=== PATIENT | female | born 1995 | race Caucasian/White ===

== ENCOUNTER 2016-09-30 20:42 | Emergency (ER) | payer MEDICAID, OTHER ==
[~2016-09-30] VITALS: Ht 167.6 cm; Wt 112.9 kg
[~2016-09-30 20:42] MED LIST: ATIVAN0.5 MG ORAL; NAPROSYN500 M1 ORAL; NKM
--- NOTE | 2016-09-30 21:06 | Emergency Room Report ---
History of Present Illness General Chief Complaint: Vaginal Source: Patient Present Illness HPI Patient is a 21-year-old female a approximately one month . The patient presented for increased lower bowel cramping and vaginal bleeding. Patient any fever. She denied having any dysuria. Patient denied any vomiting or diarrhea. As she was recently told she was . Patient had previously had some exams done without any findings of intrauterine . The patient reports complaint of having increased pain. She reported having pain midline her abdomen. She denied any lateralized pain. She denied worsening pain with ambulation.The patient had LMP approximately August 09, 2016 , she denied severe pain. Allergies: Coded Allergies: No Known Allergies (Unverified , 11/04/13) Patient History Past Medical History: see triage record Last Menstrual Period: AUG THIS YEAR Now: Yes - WAS TOLD POSITIVE FOR : 5 Reviewed Nursing Documentation: PMH: Agreed, PSxH: Agreed Nursing Documentation-PM Past Medical History: No Stated History Review of Systems All Other Systems: negative except mentioned in HPI Physical Exam Vital Signs Date Time Temp Pulse Resp B/P Pulse Ox O2 Delivery O2 Flow Rate FiO2 09/30/16 20:49 97.7 96 18 165/92 100 Room Air Sp02 EP Interpretation: reviewed, normal General Appearance: normal inspection, well appearing, no apparent distress, alert, GCS 15, obese Head: atraumatic ENT: normal ENT inspection, hearing grossly normal, normal voice Neck: normal inspection, full range of motion, supple, no bony tend Respiratory: normal inspection, lungs clear, normal breath sounds, no respiratory distress, no retraction, no wheezing Cardiovascular #1: regular rate, rhythm, no edema Gastrointestinal: normal inspection, normal bowel sounds, non tender, soft, no guarding, no hernia Genitourinary: no CVA tenderness Musculoskeletal: normal inspection, back normal, normal range of motion Neurologic: normal inspection, alert, oriented x3, responsive, thread separator III-XII nml as tested, speech normal Psychiatric: normal inspection, judgement/insight normal, mood/affect normal Skin: normal inspection, normal color, no rash Medical Decision Making Diagnostic Impression: Primary Impression: Threatened in first trimester ER Course Patient presented for abdominal pain. Differential diagnoses included ischemic bowel, appendicitis, perforated viscus, abdominal aortic aneurysm, inferior myocardial infarction, viral gastroenteritis Because of complexity of patient's case laboratory testing and imaging studies were ordered. Ultrasound imaging was ordered due to patient's and abdominal pain. The patient's quantitative beta-hCG was noted to be below discriminatory zone. Patient was noted to have ultrasound without adnexal abnormalities. The patient was advised followup with her HOME CARE PHYSICAL THERAPIST. The patient is advised to return if she began having increased pain or bleeding or lightheadedness. Labs Test 09/30/16 20:17 09/30/16 21:25 Urine Color Yellow Urine Appearance Clear Urine pH 7 (4.5-8.0) Urine Specific [place] 1.010 (1.005-1.035) Urine Protein 2+ (NEGATIVE) Urine Glucose (UA) Negative (NEGATIVE) Urine Ketones Negative (NEGATIVE) Urine Occult Blood 5+ (NEGATIVE) Urine Nitrite Negative (NEGATIVE) Urine Bilirubin Negative (NEGATIVE) Urine Urobilinogen 1 MG/DL (0.0-1.0) Urine Leukocyte Esterase 1+ (NEGATIVE) Urine RBC 10-15 /HPF (0 - 2) Urine WBC 5-10 /HPF (0 - 2) Urine Squamous Epithelial Cells Few /LPF (NONE/OCC) Urine Bacteria Many /HPF (NONE) White Blood Count 9.8 K/UL (4.8-10.8) Red Blood Count 4.92 M/UL (4.20-5.40) Hemoglobin 14.1 G/DL (12.0-16.0) Hematocrit 44.4 % (37.0-47.0) Mean Corpuscular Volume 90 FL (80-99) Mean Corpuscular Hemoglobin 28.7 PG (27.0-31.0) Mean Corpuscular Hemoglobin Concent 31.8 G/DL (32.0-36.0) Red Cell Distribution Width 13.0 % (11.6-14.8) Platelet Count 224 K/UL (150-450) Mean Platelet Volume 7.9 FL (6.5-10.1) Neutrophils (%) (Auto) 57.8 % (45.0-75.0) Lymphocytes (%) (Auto) 31.5 % (20.0-45.0) Monocytes (%) (Auto) 8.3 % (1.0-10.0) Eosinophils (%) (Auto) 1.4 % (0.0-3.0) Basophils (%) (Auto) 1.0 % (0.0-2.0) Prothrombin Time 9.8 SEC (9.30-11.50) Prothromb Time International Ratio 1.0 (0.9-1.1) Activated Partial Thromboplast Time 24 SEC (23-33) Sodium Level 139 mEQ/L (135-145) Potassium Level 3.9 mEQ/L (3.4-4.9) Chloride Level 97 mEQ/L (98-107) Carbon Dioxide Level 28 mEQ/L (20-30) Anion Gap 14 (5-15) Blood Urea Nitrogen 12 mg/dL (7-23) Creatinine 0.8 mg/dL (0.5-0.9) Estimat Glomerular Filtration Rate > 60 mL/min (>60) Glucose Level 111 mg/dL (74-106) Calcium Level 9.5 mg/dL (8.6-10.2) Total Bilirubin 0.2 mg/dL (0.0-1.2) Aspartate Amino Transf (AST/SGOT) 26 U/L (5-40) Alanine Aminotransferase (ALT/SGPT) 42 U/L (3-33) Alkaline Phosphatase 74 U/L (35-104) Total Protein 8.4 g/dL (6.6-8.7) Albumin 4.7 g/dL (3.5-5.2) Globulin 3.7 g/dL Albumin/Globulin Ratio 1.2 (1.0-2.7) Lipase 31 U/L (< 60) Human Chorionic Gonadotropin, Quant 1264 mIU/mL Last Vital Signs Date Time Temp Pulse Resp B/P Pulse Ox O2 Delivery O2 Flow Rate FiO2 09/30/16 20:49 97.7 96 18 165/92 100 Room Air Status: improved Disposition: HOME, SELF-CARE Condition: Stable Scripts Cephalexin* (KEFLEX*) 500 Mg Capsule 500 MG ORAL Q6H, #28 CAP 0 Refills Prov: Jaya Villalba 09/30/16 Acetaminophen (Tylenol) 325 Mg Tablet 650 MG ORAL Q6H Y for Prn Pain/Headache/Temp > 101, #30 TAB 0 Refills Prov: Jaya Villalba 09/30/16 Jaya Villalba Sep 30, 2016 21:06
[2016-09-30] MEDS ORDERED: TYLENOL325 MG ORAL (21:07)
[2016-09-30 21:25] LABS: APPEARANCE,URINE CLEAR; KETONES,URINE NEGATIVE (NEGATIVE); LEUKOCYTE ESTERASE ,URINE 1+ (NEGATIVE); NITRITE,URINE NEGATIVE (NEGATIVE); PH,URINE 7 (4.5-8.0); PROTEIN,URINE 2+ (NEGATIVE); UROBILINOGEN,URINE 1 MG/DL (0.0-1.0)
[2016-09-30 21:39] LABS: BACTERIA,URINE MANY /HPF; SQUAMOUS EPITHELIAL CELL,UR FEW /LPF (NONE/OCC)
[2016-09-30 21:46] LABS: EOSINOPHILS % (AUTO) 1.4 % (0.0-3.0); LYMPHOCYTES % (AUTO) 31.5 % (20.0-45.0); MEAN CORPUSCULAR HEMOGLOBIN 28.7 PG (27.0-31.0); MEAN CORPUSCULAR HGB CONC 31.8 G/DL (32.0-36.0); MEAN CORPUSCULAR VOLUME 90 FL (80-99); MEAN PLATELET VOLUME 7.9 FL (6.5-10.1); MONOCYTES % (AUTO) 8.3 % (1.0-10.0); NEUTROPHILS % (AUTO) 57.8 % (45.0-75.0); PLATELET COUNT 224 K/UL (150-450); RED BLOOD COUNT 4.92 M/UL (4.20-5.40); WHITE BLOOD COUNT 9.8 K/UL (4.8-10.8)
[2016-09-30 21:49] LABS: PROTHROMBIN TIME 9.8 SEC (9.30-11.50)
[2016-09-30 21:53] LABS: ALANINE AMINOTRANSFERASE 42 U/L (3-33); ALBUMIN/GLOBULIN RATIO 1.2 (1.0-2.7); ANION GAP 14 (5-15); ASPARTATE AMINO TRANSFERASE 26 U/L (5-40); CALCIUM 9.5 mg/dL (8.6-10.2); CARBON DIOXIDE 28 mEQ/L (20-30); CHLORIDE 97 mEQ/L (98-107); CREATININE 0.8 mg/dL (0.5-0.9); GLOMERULAR FILTRATION RATE > 60 mL/min (>60); HEMOLYSIS 5; LIPASE 31 U/L (< 60); POTASSIUM 3.9 mEQ/L (3.4-4.9); SODIUM 139 mEQ/L (135-145); TOTAL PROTEIN 8.4 g/dL (6.6-8.7)
[2016-09-30 22:03] VITALS: BP 129/80
[2016-09-30 23:15] VITALS: BP 125/78
[2016-09-30] MEDS ORDERED: KEFLEX500 MG ORAL (23:46)
[2016-09-30 23:50] VITALS: BP 125/78
--- NOTE | 2016-10-01 09:57 | Diagnostic Imaging Report ---
Indication:Lower abdominal and pelvic pain Technique: Grayscale and duplex Doppler imaging of the pelvis performed utilizing a transabdominal scan and endovaginal scan. Comparison: None Findings: The uterus is retroverted. Endometrium is 6 mm in thickness. The ovaries appear normal with Doppler evidence of blood flow. Uterus measures 7.6 x 0.5 x 4.4 cm. Right ovary 2.5 x 2.3 x 1.7 cm. Left ovary 2.4 x 1.1 x 1.3 cm. Impression: Negative study
== END 2016-09-30 23:50 | disposition home or self-care (01) ==
LOC: EMR 21:07
DX: O20.0 Threatened abortion (principal); Z3A.00 Weeks of gestation of pregnancy not specified
CPT/HCPCS: 36415; 76830; 76856; 80053; 81003; 83690; 84702; 85025; 85610; 85730; 87086; 96360; 99284; J7040

== ENCOUNTER 2018-05-26 18:20 | Emergency (ER) | payer OTHER ==
[~2018-05-26] VITALS: Ht 170.2 cm; Wt 116.6 kg
[~2018-05-26 18:20] MED LIST changes: +KEFLEX500 MG ORAL; +TYLENOL325 MG ORAL
[2018-05-26 19:11] VITALS: BP 164/100
[2018-05-26 19:31] LABS: BASOPHILS % (AUTO) 1.7 % (0.0-2.0); EOSINOPHILS % (AUTO) 1.7 % (0.0-3.0); HEMATOCRIT 43.1 % (37.0-47.0); HEMOGLOBIN 14.6 G/DL (12.0-16.0); LYMPHOCYTES % (AUTO) 34.1 % (20.0-45.0); MEAN CORPUSCULAR VOLUME 90 FL (80-99); MONOCYTES % (AUTO) 7.2 % (1.0-10.0); NEUTROPHILS % (AUTO) 55.4 % (45.0-75.0); PLATELET COUNT 249 K/UL (150-450); WHITE BLOOD COUNT 8.6 K/UL (4.8-10.8)
[2018-05-26 19:34] LABS: APPEARANCE,URINE CLEAR; BILIRUBIN, URINE NEGATIVE (NEGATIVE); COLOR,URINE PALE YELLOW; GLUCOSE, URINE (UA) NEGATIVE (NEGATIVE); KETONES,URINE NEGATIVE (NEGATIVE); LEUKOCYTE ESTERASE ,URINE NEGATIVE (NEGATIVE); NITRITE,URINE NEGATIVE (NEGATIVE); PH,URINE 8 (4.5-8.0); PROTEIN,URINE NEGATIVE (NEGATIVE); UROBILINOGEN,URINE NORMAL MG/DL (0.0-1.0)
[2018-05-26 19:46] LABS: ANION GAP 7 mmol/L (5-15); BLOOD UREA NITROGEN 10 mg/dL (7-18); CALCIUM 9.3 MG/DL (8.5-10.1); CARBON DIOXIDE 29 MMOL/L (21-32); CHLORIDE 103 MMOL/L (98-107); CREATININE 0.9 MG/DL (0.55-1.30); POTASSIUM 3.7 MMOL/L (3.5-5.1); SODIUM 139 MMOL/L (136-145)
[2018-05-26 19:56] LABS: ALANINE AMINOTRANSFERASE 162 U/L (12-78); ALBUMIN 4.1 G/DL (3.4-5.0); ALBUMIN/GLOBULIN RATIO 0.9 (1.0-2.7); ALKALINE PHOSPHATASE 96 U/L (46-116); ASPARTATE AMINO TRANSFERASE 73 U/L (15-37); BILIRUBIN,TOTAL 0.2 MG/DL (0.2-1.0)
[2018-05-26] MEDS ORDERED: TYLENOL EXTRA500 MG ORAL (20:15)
--- NOTE | 2018-05-26 20:15 | Emergency Room Report ---
History of Present Illness General Chief Complaint: Chest Pain Source: Patient (Nathen Verde) Present Illness HPI 22-year-old female patient presents ER complaining of chest pain and left arm pain 1 day. Patient reports symptoms began this morning. Denies history of LA , stroke, congestive heart failure, asthma. Reports pain is reproducible. Denies injury or trauma. Denies history of high blood pressure. Denies taking any blood thinner medications. Denies taking control medications. Denies smoking. Denies long periods of immobilization. Denies history of cancer. Denies abdominal pain. Denies history of anxiety. Reports that she has been "stressed" at home because of her kids. Denies fever. denies drinking or drug use. Denies history of anxiety or panic attacks. Denies suicidal or homicidal ideation. (Nathen Verde) Allergies: Coded Allergies: No Known Allergies (Unverified , 11/04/13) Patient History Past Medical History: see triage record Last Menstrual Period: 05/04/2018 Reviewed Nursing Documentation: PMH: Agreed; PSxH: Agreed (Nathen Verde) Nursing Documentation-PMH Past Medical History: No Stated History (Nathen Verde) Review of Systems All Other Systems: negative except mentioned in HPI (Nathen Verde) Physical Exam Vital Signs Date Time Temp Pulse Resp B/P (MAP) Pulse Ox O2 Delivery O2 Flow Rate FiO2 05/26/18 18:29 98.9 103 16 164/100 95 Room Air 99.0 Sp02 EP Interpretation: reviewed, normal General Appearance: well appearing, no apparent distress, alert, GCS 15, non- toxic Head: normocephalic, atraumatic Eyes: bilateral eye normal inspection, bilateral eye PERRL ENT: hearing grossly normal, normal pharynx, no angioedema, normal voice, uvula midline, moist mucus membranes Neck: full range of motion Respiratory: lungs clear, normal breath sounds, no rhonchi, no respiratory distress, no accessory muscle use, no wheezing, speaking full sentences, other - TTP over sternum Cardiovascular #1: regular rate, rhythm, no edema Cardiovascular #2: 2+ radial (R), 2+ radial (L) Gastrointestinal: non tender, soft, no mass, non-distended, no guarding, no rebound, other - negative Martell Genitourinary: no CVA tenderness Musculoskeletal: back normal, digits/nails normal, gait/station normal, normal range of motion, non-tender, no calf tenderness, Dilshad's Sign negative Neurologic: alert, oriented x3, responsive, motor strength/tone normal, sensory intact Psychiatric: mood/affect normal Skin: no rash Lymphatic: no adenopathy (Nathen Verde) Medical Decision Making PA Attestation Dr. Orlando is my supervising Physician whom patient management has been discussed with. (Nathen Verde) Diagnostic Impression: Primary Impression: Musculoskeletal chest pain Additional Impression: Elevated liver enzymes ER Course Pt. presents to the ED c/o chest pain. Ddx considered but are not limited to LA, arrhythmia, CHF, DVT, PE, pneumonia, bronchitis, costochondritis, anxiety. No calf swelling, negative Dilshad's sign, no hemoptysis, no recent travel, no control medication or smoking, low suspicion for DVT pr PE per Well's criteria. Low suspicion for cardiac cause of pain. Will order labs to rule out. On PE, chest is TTP; chest pain likely musculoskeletal in nature. Patient instructed to take NSAIDs as needed for pain symptoms. Vital signs: are WNL, pt. is afebrile Ordered X-ray, labs, troponin, EKG and pain medication. ER COURSE Provided with pain medication. CBC and CMP unremarkable, elevation WBCs, mild elevation of LFTs, advised patient on low fat diet, avoid greasy fatty foods, follow-up with primary care provider to discuss referral to GI specialist. no abdominal tenderness to palpation, negative Martell sign, does not require further GI workup at this time. Require abdominal imaging at this time. Follow-up with PCP UA negative Troponin negative CXR no acute disease per the preliminary reading EKG shows no ST elevations or arrhythmia Low suspicion for LA or CHF exacerbation. Discuss need for cardiac workup and referral to cardiology. Patient OK for close outpatient followup. patient reports history of stress at home, advised patient to avoid stressors, provided with contact information for mental health urgent care, follow-up with them or with primary care provider discussed further evaluation and treatment. Followup with primary care provider, discuss referral to cardiology. patient denies shortness of breath, EKG and chest x-ray unremarkable, troponin negative, low suspicion for LA or CHF. DISCHARGE: -Rx provided for Tylenol for pain symptoms. At this time pt. is stable for d/c to home. Patient is resting comfortably, in no acute distress, nontoxic appearing, talking without difficulty. Will provide printed patient care instructions, and any necessary prescriptions. Patient instructed to follow with primary care provider in 1-3 days. Followup with primary care provider for further pain medication rx. Followup with nozzle tender and eye doctor. Care plan and follow up instructions have been discussed with the patient prior to discharge. Take medications as directed. Patient questions asked and answered. Patient reports understanding and agreement to treatment plan. ER precautions given, patient instructed to return to ER immediately for any new or worsening of symptoms. - Please note that this Emergency Department Report was dictated using [employer] and development head technology software, occasionally this can lead to erroneous entry secondary to interpretation by the dictation equipment. Labs Test 05/26/18 19:15 White Blood Count 8.6 K/UL (4.8-10.8) Red Blood Count 4.80 M/UL (4.20-5.40) Hemoglobin 14.6 G/DL (12.0-16.0) Hematocrit 43.1 % (37.0-47.0) Mean Corpuscular Volume 90 FL (80-99) Mean Corpuscular Hemoglobin 30.3 PG (27.0-31.0) Mean Corpuscular Hemoglobin Concent 33.8 G/DL (32.0-36.0) Red Cell Distribution Width 12.0 % (11.6-14.8) Platelet Count 249 K/UL (150-450) Mean Platelet Volume 7.9 FL (6.5-10.1) Neutrophils (%) (Auto) 55.4 % (45.0-75.0) Lymphocytes (%) (Auto) 34.1 % (20.0-45.0) Monocytes (%) (Auto) 7.2 % (1.0-10.0) Eosinophils (%) (Auto) 1.7 % (0.0-3.0) Basophils (%) (Auto) 1.7 % (0.0-2.0) Urine Color Pale yellow Urine Appearance Clear Urine pH 8 (4.5-8.0) Urine Specific [place] 1.015 (1.005-1.035) Urine Protein Negative (NEGATIVE) Urine Glucose (UA) Negative (NEGATIVE) Urine Ketones Negative (NEGATIVE) Urine Blood Negative (NEGATIVE) Urine Nitrite Negative (NEGATIVE) Urine Bilirubin Negative (NEGATIVE) Urine Urobilinogen Normal MG/DL (0.0-1.0) Urine Leukocyte Esterase Negative (NEGATIVE) Urine HCG, Qualitative Negative (NEGATIVE) Sodium Level 139 MMOL/L (136-145) Potassium Level 3.7 MMOL/L (3.5-5.1) Chloride Level 103 MMOL/L (98-107) Carbon Dioxide Level 29 MMOL/L (21-32) Anion Gap 7 mmol/L (5-15) Blood Urea Nitrogen 10 mg/dL (7-18) Creatinine 0.9 MG/DL (0.55-1.30) Estimat Glomerular Filtration Rate > 60 mL/min (>60) Glucose Level 92 MG/DL (74-106) Calcium Level 9.3 MG/DL (8.5-10.1) Total Bilirubin 0.2 MG/DL (0.2-1.0) Aspartate Amino Transf (AST/SGOT) 73 U/L (15-37) Alanine Aminotransferase (ALT/SGPT) 162 U/L (12-78) Alkaline Phosphatase 96 U/L (46-116) Troponin I 0.000 ng/mL (0.000-0.056) Pro-B-Type Natriuretic Peptide 67 pg/mL (0-125) Total Protein 8.7 G/DL (6.4-8.2) Albumin 4.1 G/DL (3.4-5.0) Globulin 4.6 g/dL Albumin/Globulin Ratio 0.9 (1.0-2.7) (Nathen Verde P.A.) EKG Diagnostic Results Rate: normal, tachycardiac, bradycardiac Rhythm: NSR ST Segments: no acute changes ASA given to the pt in ED: Yes PA Scribe Text Donald Verde PA-C (Nathen Verde P.A.) Rhythm Strip Diag. Results EP Interpretation: yes Rate: 90 Rhythm: NSR, no PVC's, no ectopy PA Scribe Text Donald Verde PA-C (Nathen Verde P.A.) Chest X-Ray Diagnostic Results Chest X-Ray Diagnostic Results : Chest X-Ray Ordered: Yes # of Views/Limited/Complete: 1 View Indication: Chest Pain EP Interpretation: Yes PA Xray: Interpretation reviewed, by supervising MD, and agrees with findings. Interpretation: no consolidation, no effusion, no pneumothorax, no acute cardiopulmonary disease Impression: No acute disease PA Scribe Text Donald Verde PA-C (Nathen Verde) Chest X-Ray Diagnostic Results : Electronically Signed by: Scribe documentation reviewed by me and is accurate, Eber Orlando MD (Eber Orlando MD) Last Vital Signs Date Time Temp Pulse Resp B/P (MAP) Pulse Ox O2 Delivery O2 Flow Rate FiO2 05/26/18 19:11 103 16 Room Air 05/26/18 19:11 98.9 164/100 95 98.9 Status: improved (Nathen Verde) Disposition: HOME, SELF-CARE Condition: Stable Scripts Acetaminophen* (TYLENOL EXTRA STRENGTH*) 500 Mg Tablet 500 MG ORAL Q8H PRN for Prn Headache/Temp > 101, #30 TAB 0 Refills Prov: Nathen Verde 05/26/18 Patient Instructions: Costochondritis, [id number], Liver Function Tests, Nonspecific Chest Pain Additional Instructions: Followup with primary care provider in 3 -5 days. Discuss referral to cardiology as needed. Discuss referral to mental health professional to discuss stress symptoms. Followup with GI specialist to discuss elevated liver enzymes. Take medications as directed. Patient questions asked and answered. ER precautions given, patient instructed to return to ER immediately for any new or worsening of symptoms. Nathen Verde May 26, 2018 20:15 Eber Orlando MD May 28, 2018 07:25
[2018-05-26 20:37] VITALS: BP 155/90
--- NOTE | 2018-05-27 09:13 | Diagnostic Imaging Report ---
Indication: Chest pain Technique: One view of the chest Comparison: For 10/21/2013 Findings: Lungs and pleural spaces are clear. Heart size is normal . No significant interim change Impression: No acute process
== END 2018-05-26 20:37 | disposition home or self-care (01) ==
LOC: EMR 20:27
DX: R07.89 Other chest pain (principal); R74.8 Abnormal levels of other serum enzymes
CPT/HCPCS: 36415; 71045; 80053; 81003; 81025; 83880; 84484; 85025; 99284